=== PATIENT | male | born 1965 | race Caucasian/White ===

== ENCOUNTER 2018-03-15 14:30 | Emergency (ER) | payer MEDICAID, OTHER ==
[~2018-03-15] VITALS: Ht 165.1 cm; Wt 63.5 kg
[~2018-03-15 14:30] MED LIST: DEXL60CA3 PO; DIPH1TAB PO
--- NOTE | 2018-03-15 14:53 | NUR ---
Patient discharged to home in stable conditon. Written and verbal after care instructions given. Patient verbalizes understanding of instructions.
[2018-03-15 14:54] VITALS: BP 123/82
== END 2018-03-15 14:54 | disposition home or self-care (01) ==
LOC: ER 14:32
DX: R19.7 Diarrhea, unspecified (principal); K21.9 Gastro-esophageal reflux disease without esophagitis; F12.10 Cannabis abuse, uncomplicated; Z79.899 Other long term (current) drug therapy
CPT/HCPCS: A4663

== ENCOUNTER 2018-04-08 10:00 | Emergency (ER) | payer MEDICAID ==
[~2018-04-08] VITALS: Ht 167.6 cm; Wt 61.7 kg
--- NOTE | 2018-04-08 10:08 | NUR ---
Pt was not found in ER lobby or outside ER.
--- NOTE | 2018-04-08 10:54 | NUR ---
SEEN BY MD , MEDICTAION REFILL GIVEN , DISCHARGE INSTRUCTIONS GIVEN, PATIENT DISCHARGED TO HOME WALKING.
== END 2018-04-08 10:55 | disposition home or self-care (01) ==
LOC: ER 10:00
DX: K52.9 Noninfective gastroenteritis and colitis, unspecified (principal); Z76.0 Encounter for issue of repeat prescription; K21.9 Gastro-esophageal reflux disease without esophagitis; F12.10 Cannabis abuse, uncomplicated; Z79.899 Other long term (current) drug therapy; Z90.49 Acquired absence of other specified parts of digestive tract
CPT/HCPCS: A4663

== ENCOUNTER 2019-03-11 08:26 | Emergency (ER) | payer MEDICAID ==
[~2019-03-11] VITALS: Ht 167.6 cm; Wt 59.9 kg
--- NOTE | 2019-03-11 09:05 | NUR ---
Patient discharged to home in stable conditon. Written and verbal after care instructions given to patient. Patient verbalizes understanding of instructions.
== END 2019-03-11 09:09 | disposition home or self-care (01) ==
LOC: ER 08:27
DX: R19.7 Diarrhea, unspecified (principal); K21.9 Gastro-esophageal reflux disease without esophagitis; F12.10 Cannabis abuse, uncomplicated; Z76.0 Encounter for issue of repeat prescription; Z79.899 Other long term (current) drug therapy
CPT/HCPCS: A4663

== ENCOUNTER 2019-04-11 23:44 | Emergency (ER) | payer MEDICAID ==
[~2019-04-11] VITALS: Ht 167.6 cm; Wt 64.4 kg
--- NOTE | 2019-04-12 00:32 | NUR ---
Patient discharged to home in stable conditon. Written and verbal after care instructions given. Patient verbalizes understanding of instructions. Patient ambulated with stable gait.
[2019-04-12 01:05] VITALS: BP 120/72
== END 2019-04-12 01:06 | disposition home or self-care (01) ==
LOC: ER 23:47
DX: K58.0 Irritable bowel syndrome with diarrhea (principal); K21.9 Gastro-esophageal reflux disease without esophagitis; F12.10 Cannabis abuse, uncomplicated; Z76.0 Encounter for issue of repeat prescription; Z90.49 Acquired absence of other specified parts of digestive tract; Z79.899 Other long term (current) drug therapy
CPT/HCPCS: A4663

== ENCOUNTER 2019-08-27 10:28 | Emergency (ER) | payer MEDICAID ==
[~2019-08-27] VITALS: Ht 172.7 cm; Wt 72.6 kg
--- NOTE | 2019-08-27 11:15 | NUR ---
Patient her for med refill for his Lomotil
--- NOTE | 2019-08-27 11:22 | NUR ---
Patient discharged to home in stable conditon. Written and verbal after care instructions given. Patient verbalizes understanding of instructions. Patient ambulated with stable gait.
[2019-08-27 11:25] VITALS: BP 135/82
== END 2019-08-27 11:26 | disposition home or self-care (01) ==
LOC: ER 10:28
DX: K21.9 Gastro-esophageal reflux disease without esophagitis (principal); F12.10 Cannabis abuse, uncomplicated; Z76.0 Encounter for issue of repeat prescription; Z79.899 Other long term (current) drug therapy
CPT/HCPCS: A4663

== ENCOUNTER 2019-09-20 12:41 | Emergency (ER) | payer MEDICAID ==
[~2019-09-20] VITALS: Ht 152.4 cm; Wt 59.9 kg
--- NOTE | 2019-09-20 12:57 | NUR ---
PT IS IN ROOM #4A. DR CROWELL EVALUATED THE PT.
[2019-09-20 12:58] VITALS: BP 131/72
--- NOTE | 2019-09-20 12:59 | NUR ---
Patient discharged to home in stable conditon. Verbal after care instructions given by MD himself. Patient verbalizes understanding of instructions.
== END 2019-09-20 12:59 | disposition home or self-care (01) ==
LOC: ER 12:41
DX: K21.9 Gastro-esophageal reflux disease without esophagitis (principal); A08.8 Other specified intestinal infections; F12.10 Cannabis abuse, uncomplicated; Z76.0 Encounter for issue of repeat prescription; Z88.8 Allergy status to other drugs, medicaments and biological substances; Z79.899 Other long term (current) drug therapy; Z90.49 Acquired absence of other specified parts of digestive tract
CPT/HCPCS: A4663

== ENCOUNTER 2023-10-08 15:07 | Emergency (ER) | payer MEDICAID, OTHER ==
[~2023-10-08] VITALS: Ht 167.6 cm; Wt 59.9 kg
[2023-10-08 15:11] VITALS: O2SAT 99
[2023-10-08] MEDS ORDERED: DIPH1TAB PO (16:53)
== END 2023-10-08 17:00 | disposition home or self-care (01) ==
LOC: ER 15:07
DX: R19.7 Diarrhea, unspecified (principal); Z76.0 Encounter for issue of repeat prescription; K21.9 Gastro-esophageal reflux disease without esophagitis; Z98.890 Other specified postprocedural states; Z79.899 Other long term (current) drug therapy
CPT/HCPCS: A4606; A4663